=== PATIENT | male | born 1980 | race Caucasian/White ===

== ENCOUNTER 2016-07-22 16:52 | Emergency (ER) | payer SELFPAY ==
[~2016-07-22] VITALS: Ht 172.7 cm; Wt 65.8 kg
[2016-07-22 17:32] VITALS: BP 128/80
== END 2016-07-22 17:55 | disposition home or self-care (01) ==
LOC: ER 16:55
DX: R19.7 Diarrhea, unspecified (principal); F41.9 Anxiety disorder, unspecified
CPT/HCPCS: 99281; A4606; Z7610; Z7502

== ENCOUNTER 2016-08-08 00:54 | Emergency (ER) | payer SELFPAY ==
[~2016-08-08] VITALS: Ht 172.7 cm; Wt 66.7 kg
[2016-08-08 01:34] VITALS: BP 159/93
[2016-08-08] MEDS ORDERED: LORAZEPAM 1 MG TABLET ONE (01:53)
[2016-08-08] MEDS ORDERED: IBUPROFEN 400 MG TABLET ONE (01:53)
[2016-08-08] MEDS ORDERED: LORAZEPAM 1 MG TABLET PO ONE (02:00)
[2016-08-08] MEDS ORDERED: IBUPROFEN 400 MG TABLET PO ONE (02:00)
== END 2016-08-08 02:02 | disposition home or self-care (01) ==
LOC: ER 00:56
DX: F41.9 Anxiety disorder, unspecified (principal); M54.12 Radiculopathy, cervical region; M62.838 Other muscle spasm
CPT/HCPCS: 99284; A4606; Z7610

== ENCOUNTER 2016-12-26 22:53 | Emergency (ER) | payer SELFPAY ==
--- NOTE | 2016-12-26 23:36 | NUR ---
called pt in wr, no response
--- NOTE | 2016-12-26 23:52 | NUR ---
called pt in wr, no response
--- NOTE | 2016-12-27 00:08 | NUR ---
called pt in wr, no response
== END 2016-12-27 00:09 | disposition left against medical advice (07) ==
LOC: ER 22:57
DX: Z53.21 Procedure and treatment not carried out due to patient leaving prior to being seen by health care provider (principal)

== ENCOUNTER 2017-02-24 01:15 | Emergency (ER) | payer SELFPAY ==
--- NOTE | 2017-02-24 01:30 | NUR ---
STOPPED IN THE MIDDLE OF TRIAGE AND LEFT
== END 2017-02-24 01:39 | disposition left against medical advice (07) ==
LOC: ER 01:15
DX: Z53.21 Procedure and treatment not carried out due to patient leaving prior to being seen by health care provider (principal)

== ENCOUNTER 2017-10-18 21:54 | Emergency (ER) | payer SELFPAY ==
[~2017-10-18] VITALS: Ht 172.7 cm; Wt 65.8 kg
[2017-10-18 22:02] VITALS: BP 128/77
--- NOTE | 2017-10-18 22:35 | NUR ---
Patient eloped from facility. ER MD notified.
== END 2017-10-18 23:00 | disposition left against medical advice (07) ==
LOC: ER 21:54
DX: F41.9 Anxiety disorder, unspecified (principal); F17.200 Nicotine dependence, unspecified, uncomplicated
CPT/HCPCS: A4606; Z7610

== ENCOUNTER 2018-12-27 01:52 | Emergency (ER) | payer SELFPAY ==
[~2018-12-27] VITALS: Ht 172.7 cm; Wt 63.5 kg
--- NOTE | 2018-12-27 02:11 | NUR ---
s/e bt Dr. sanon at bedside
[2018-12-27 02:57] LABS: CALCIUM, SERUM 9.6 mg/dL (8.5-10.1); CREATININE 1.6 mg/dL (0.6-1.3); POTASSIUM 3.7 mmol/L (3.5-5.1)
[2018-12-27 03:10] LABS: BASOPHILS % (AUTO) 0.1 % (0.0-2.0); EOSINOPHILS % (AUTO) 0.1 % (0.0-6.0); HEMATOCRIT 43 % (39-51); HEMOGLOBIN 15.1 g/dL (13.5-17.5); LYMPHOCYTES # (AUTO) 1.5 /CMM (0.8-4.8); MEAN CORPUSCULAR HGB CONC 35 g/dl (31.0-36.0); MEAN CORPUSCULAR VOLUME 91 fL (80-96); MONOCYTES # (AUTO) 0.9 /CMM (0.1-1.30); MONOCYTES % (AUTO) 7.4 % (2.0-12.0); NEUTROPHILS # (AUTO) 10.1 /CMM (1.8-8.9); NEUTROPHILS % (AUTO) 80.4 % (43.0-81.0); PLATELET COUNT (AUTO) 307 /CMM (150-450); RED BLOOD CELL COUNT(AUTO) 4.72 MIL/uL (4.5-6.0); WHITE BLOOD COUNT (AUTO) 12.6 K/uL (4.3-11.0)
[2018-12-27 03:59] VITALS: BP 128/79
--- NOTE | 2018-12-27 03:59 | NUR ---
Patient discharged to home in stable condition. Written and verbal after care instructions given. Patient verbalizes understanding of instruction. Pt ambulatory with a steady gait
== END 2018-12-27 04:00 | disposition home or self-care (01) ==
LOC: ER 01:58
DX: R53.1 Weakness (principal); E86.0 Dehydration; F41.9 Anxiety disorder, unspecified; F17.200 Nicotine dependence, unspecified, uncomplicated; Z60.2 Problems related to living alone
CPT/HCPCS: 36415; 80048-TC; 85025-TC

== ENCOUNTER 2019-07-17 12:54 | Emergency (ER) | payer MEDICAID ==
[~2019-07-17] VITALS: Ht 172.7 cm; Wt 68.0 kg
--- NOTE | 2019-07-17 13:01 | NUR ---
BIB SELF C/O DIZZINESS/WEAKNESS STARTED 1 HOUR AGO. TO ER BED 13, HOOKED TO MONITOR, CHANGED TO HOSP GOWN, WARM BLANKET PROVIDED. AWAITING MD GUPTA. HITESH AOx4, BREATHING EVEN AND UNLABORED NAD NOTED
--- NOTE | 2019-07-17 13:08 | NUR ---
CK GANDHI AT BEDSIDE
[2019-07-17] MEDS ORDERED: IV NS 0.9% 1,000 ML BAG IV ONE (13:30)
[2019-07-17 13:33] LABS: BASOPHILS % (AUTO) 0.3 % (0.0-2.0); EOSINOPHILS % (AUTO) 0.3 % (0.0-6.0); HEMATOCRIT 44 % (39-51); HEMOGLOBIN 15.3 g/dL (13.5-17.5); LYMPHOCYTES # (AUTO) 1.2 /CMM (0.8-4.8); LYMPHOCYTES % (AUTO) 11.8 % (20.0-44.0); MEAN CORPUSCULAR HGB CONC 35 g/dl (31.0-36.0); MEAN CORPUSCULAR VOLUME 92 fL (80-96); MONOCYTES # (AUTO) 0.6 /CMM (0.1-1.30); MONOCYTES % (AUTO) 5.9 % (2.0-12.0); NEUTROPHILS # (AUTO) 8.5 /CMM (1.8-8.9); NEUTROPHILS % (AUTO) 81.7 % (43.0-81.0); PLATELET COUNT (AUTO) 285 /CMM (150-450); RED BLOOD CELL COUNT(AUTO) 4.74 MIL/uL (4.5-6.0); WHITE BLOOD COUNT (AUTO) 10.4 K/uL (4.3-11.0)
[2019-07-17 13:38] LABS: CALCIUM, SERUM 9.6 mg/dL (8.5-10.1); CREATININE 1.4 mg/dL (0.6-1.3); POTASSIUM 3.9 mmol/L (3.5-5.1)
--- NOTE | 2019-07-17 13:49 | NUR ---
WHEELED OUT VIA WHEELCHAIR FOR CT SCAN
--- NOTE | 2019-07-17 15:41 | NUR ---
IV removed. Catheter intact and site benign. Pressure and 4x4 applied to site. No bleeding noted.Patient discharged to home in stable condition. Written and verbal after care instructions given. Patient verbalizes understanding of instruction.
[2019-07-17 15:45] VITALS: BP 114/72
== END 2019-07-17 15:45 | disposition home or self-care (01) ==
LOC: ER 13:00
DX: R42 Dizziness and giddiness (principal); R51 Headache; R55 Syncope and collapse; F10.10 Alcohol abuse, uncomplicated; F17.200 Nicotine dependence, unspecified, uncomplicated; Y90.9 Presence of alcohol in blood, level not specified; Z60.2 Problems related to living alone
CPT/HCPCS: 36415; 70450; 80048; 85025; 96360; 99284; J7030

== ENCOUNTER 2019-08-15 00:30 | Emergency (ER) | payer SELFPAY ==
[~2019-08-15] VITALS: Ht 172.7 cm; Wt 68.0 kg
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
[2019-08-15 01:11] LABS: CALCIUM, SERUM 9.2 mg/dL (8.5-10.1); CREATININE 1.4 mg/dL (0.6-1.3); POTASSIUM 3.6 mmol/L (3.5-5.1)
[2019-08-15] MEDS ORDERED: VALPROATE 500 MG in IV NS 0.9% 100 ML IV STA (01:24)
[2019-08-15] MEDS ORDERED: Magnesium 1GM/D5W 100ML PREMIX 100 ML IV SCH (01:30)
[2019-08-15] MEDS ORDERED: DEXAMETHASONE SOD PHOSPHATE 4 MG/ML VIAL IV ONE (01:30)
[2019-08-15] MEDS ORDERED: DEXAMETHASONE SOD PHOSPHATE 10 MG/ML VIAL ONE (01:32)
[2019-08-15] MEDS ORDERED: Magnesium 1GM/D5W 100ML PREMIX 100 ML IV ONE (01:32)
--- NOTE | 2019-08-15 02:48 | NUR ---
IV removed. Catheter intact and site benign. Pressure and 4x4 applied to site. No bleeding noted. Patient discharged to home in stable condition. Written and verbal after care instructions given. Patient verbalizes understanding of instruction.
[2019-08-15 02:49] VITALS: BP 122/73
[2019-08-15] MEDS ORDERED: VALPROATE 500 MG in IV NS 0.9% 100 ML IV SCH (05:00)
== END 2019-08-15 02:49 | disposition home or self-care (01) ==
LOC: ER 00:31
DX: S06.0X0A Concussion without loss of consciousness, initial encounter (principal); F41.9 Anxiety disorder, unspecified; F17.200 Nicotine dependence, unspecified, uncomplicated; Z60.2 Problems related to living alone; V49.69XA Unspecified car occupant injured in collision with other motor vehicles in traffic accident, initial encounter; Y93.89 Activity, other specified; Y92.413 State road as the place of occurrence of the external cause; Y99.8 Other external cause status
CPT/HCPCS: 36415; 80048; 96365; 96375; 99284; J1100; J3475; J3490; J7030

== ENCOUNTER 2019-08-26 21:13 | Emergency (ER) | payer MEDICAID ==
[~2019-08-26] VITALS: Ht 172.7 cm; Wt 78.9 kg
--- NOTE | 2019-08-26 21:26 | NUR ---
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 PT AAOX4, RR EVEN AND UNLABORED ONR A W/NAD NOTED. PT CONNECTED TO THE [employer] DEMONSTRATOR AND POX
[2019-08-26] MEDS: IV NS 0.9% 500 ML BAG IV ONE (21:56)
--- NOTE | 2019-08-26 22:00 | NUR ---
XRAY AT BEDSIDE
[2019-08-26 22:10] LABS: BASOPHILS # (AUTO) 0.1 /CMM (0.0-0.2); BASOPHILS % (AUTO) 0.5 % (0.0-2.0); EOSINOPHILS % (AUTO) 0.9 % (0.0-6.0); HEMATOCRIT 40 % (39-51); HEMOGLOBIN 14.1 g/dL (13.5-17.5); LYMPHOCYTES # (AUTO) 2.3 /CMM (0.8-4.8); LYMPHOCYTES % (AUTO) 22.2 % (20.0-44.0); MEAN CORPUSCULAR HGB CONC 35 g/dl (31.0-36.0); MEAN CORPUSCULAR VOLUME 90 fL (80-96); MONOCYTES # (AUTO) 0.8 /CMM (0.1-1.30); MONOCYTES % (AUTO) 7.8 % (2.0-12.0); NEUTROPHILS # (AUTO) 7.1 /CMM (1.8-8.9); NEUTROPHILS % (AUTO) 68.6 % (43.0-81.0); PLATELET COUNT (AUTO) 313 /CMM (150-450); RED BLOOD CELL COUNT(AUTO) 4.43 MIL/uL (4.5-6.0); WHITE BLOOD COUNT (AUTO) 10.3 K/uL (4.3-11.0)
[2019-08-26 22:23] LABS: CALCIUM, SERUM 9.2 mg/dL (8.5-10.1); CARBON DIOXIDE 26 mmol/L (21-32); CHLORIDE 105 mmol/L (98-107); CREATININE 1.4 mg/dL (0.6-1.3); GLUCOSE 129 mg/dL (74-106); POTASSIUM 3.9 mmol/L (3.5-5.1); SODIUM SERUM 139 mmol/L (136-145); UREA NITROGEN, BLOOD 17 mg/dL (7-18)
[2019-08-26 22:34] LABS: B-TYPE NATRIURETIC PEPTIDE 32 PG/ML (0-125)
--- NOTE | 2019-08-26 23:04 | NUR ---
Patient discharged to home in stable condition. Written and verbal after care instructions given. Patient verbalizes understanding of instruction.IV removed. Catheter intact and site benign. Pressure and 4x4 applied to site. No bleeding noted.
[2019-08-26 23:05] VITALS: BP 115/70
== END 2019-08-26 23:05 | disposition home or self-care (01) ==
LOC: ER 21:16
DX: R00.2 Palpitations (principal); F41.9 Anxiety disorder, unspecified; Z60.2 Problems related to living alone; Z87.891 Personal history of nicotine dependence
CPT/HCPCS: 36415; 71045; 80048; 83880; 84484; 85025; 85730; 93005; 99285; J7040

== ENCOUNTER 2019-09-23 14:03 | Emergency (ER) | payer MEDICAID ==
[~2019-09-23] VITALS: Ht 172.7 cm; Wt 74.8 kg
--- NOTE | 2019-09-23 14:27 | NUR ---
tyrell garibay at bedside for eval.
--- NOTE | 2019-09-23 14:28 | NUR ---
iv line started blood drawn and sent to lab.
[2019-09-23 14:39] LABS: BASOPHILS % (AUTO) 0.1 % (0.0-2.0); EOSINOPHILS % (AUTO) 0.7 % (0.0-6.0); HEMATOCRIT 41 % (39-51); HEMOGLOBIN 14.5 g/dL (13.5-17.5); LYMPHOCYTES # (AUTO) 1.5 /CMM (0.8-4.8); LYMPHOCYTES % (AUTO) 18.5 % (20.0-44.0); MEAN CORPUSCULAR HGB CONC 35 g/dl (31.0-36.0); MEAN CORPUSCULAR VOLUME 90 fL (80-96); MONOCYTES # (AUTO) 0.7 /CMM (0.1-1.30); MONOCYTES % (AUTO) 9.4 % (2.0-12.0); NEUTROPHILS # (AUTO) 5.6 /CMM (1.8-8.9); NEUTROPHILS % (AUTO) 71.3 % (43.0-81.0); PLATELET COUNT (AUTO) 266 /CMM (150-450); RED BLOOD CELL COUNT(AUTO) 4.59 MIL/uL (4.5-6.0); WHITE BLOOD COUNT (AUTO) 7.9 K/uL (4.3-11.0)
[2019-09-23 14:48] LABS: CALCIUM, SERUM 9.3 mg/dL (8.5-10.1); CARBON DIOXIDE 29 mmol/L (21-32); CHLORIDE 105 mmol/L (98-107); CREATININE 1.5 mg/dL (0.6-1.3); GLUCOSE 108 mg/dL (74-106); POTASSIUM 4.1 mmol/L (3.5-5.1); SODIUM SERUM 141 mmol/L (136-145); UREA NITROGEN, BLOOD 17 mg/dL (7-18)
--- NOTE | 2019-09-23 14:51 | NUR ---
radiology at bedside for chest xray.
[2019-09-23 14:58] LABS: ALANINE AMINOTRANSFERASE 23 U/L (12-78); ALBUMIN 4.1 g/dL (3.4-5.0); ALKALINE PHOSPHATASE 62 U/L (46-116); ASPARTATE AMINOTRANSFERASE 18 U/L (15-37); BILIRUBIN,DIRECT 0.1 mg/dL (0.0-0.2); BILIRUBIN,TOTAL 0.9 mg/dL (0.2-1.0); TOTAL PROTEIN, SERUM 7.7 g/dL (6.4-8.2)
[2019-09-23 15:39] VITALS: BP 122/77
== END 2019-09-23 15:40 | disposition home or self-care (01) ==
LOC: ER 14:12
DX: R00.2 Palpitations (principal); F17.200 Nicotine dependence, unspecified, uncomplicated; Z60.2 Problems related to living alone
CPT/HCPCS: 36415; 71045-TC; 80048-TC; 80076-TC; 83690-TC; 84484-TC; 85025-TC; 85378-TC

== ENCOUNTER 2019-10-06 10:41 | Emergency (ER) | payer MEDICAID ==
[~2019-10-06] VITALS: Ht 167.6 cm; Wt 64.0 kg
[2019-10-06 11:13] VITALS: BP 127/82
== END 2019-10-06 11:15 | disposition home or self-care (01) ==
LOC: ER 10:48
DX: I10 Essential (primary) hypertension (principal); Z60.2 Problems related to living alone

== ENCOUNTER 2020-05-24 16:54 | Emergency (ER) | payer MEDICAID, OTHER ==
[~2020-05-24] VITALS: Ht 172.7 cm; Wt 70.3 kg
[2020-05-24 17:28] VITALS: BP 127/79
--- NOTE | 2020-05-24 17:38 | NUR ---
Patient eloped from facility. ER MD notified. Called Patient via phone, he stated he left because he felt better and doesn't want to be seen anymore.
== END 2020-05-24 17:49 | disposition left against medical advice (07) ==
LOC: ER 17:05
DX: R00.2 Palpitations (principal); Z53.21 Procedure and treatment not carried out due to patient leaving prior to being seen by health care provider

== ENCOUNTER 2020-06-19 16:04 | Emergency (ER) | payer OTHER ==
[~2020-06-19] VITALS: Ht 165.1 cm; Wt 68.0 kg
[2020-06-19 16:09] VITALS: BP 124/81
--- NOTE | 2020-06-19 16:55 | NUR ---
Patient discharged to home in stable condition. Written and verbal after care instructions given. Patient verbalizes understanding of instruction.
== END 2020-06-19 16:56 | disposition home or self-care (01) ==
LOC: ER 16:08
DX: R07.2 Precordial pain (principal); Z20.828 Contact with and (suspected) exposure to other viral communicable diseases; F41.9 Anxiety disorder, unspecified; Z87.448 Personal history of other diseases of urinary system; Q24.5 Malformation of coronary vessels
CPT/HCPCS: 87426; 87804; 99283; C9803

== ENCOUNTER 2021-01-11 17:48 | Emergency (ER) | payer OTHER ==
[~2021-01-11] VITALS: Ht 167.6 cm; Wt 68.0 kg
[2021-01-11 18:26] LABS: BASOPHILS % (AUTO) 0.4 % (0.0-2.0); EOSINOPHILS % (AUTO) 1.6 % (0.0-6.0); HEMATOCRIT 44 % (39-51); HEMOGLOBIN 15.2 g/dL (13.5-17.5); LYMPHOCYTES % (AUTO) 26.9 % (20.0-44.0); MEAN CORPUSCULAR HGB CONC 35 g/dl (31.0-36.0); MEAN CORPUSCULAR VOLUME 95 fL (80-96); MONOCYTES # (AUTO) 0.8 K/uL (0.1-1.30); MONOCYTES % (AUTO) 10.6 % (2.0-12.0); NEUTROPHILS # (AUTO) 4.4 K/uL (1.8-8.9); NEUTROPHILS % (AUTO) 60.5 % (43.0-81.0); PLATELET COUNT (AUTO) 299 K/uL (150-450); RED BLOOD CELL COUNT(AUTO) 4.59 MIL/uL (4.5-6.0); WHITE BLOOD COUNT (AUTO) 7.3 K/uL (4.3-11.0)
[2021-01-11 18:33] LABS: CALCIUM, SERUM 8.9 mg/dL (8.5-10.1); CARBON DIOXIDE 24 mmol/L (21-32); CHLORIDE 105 mmol/L (98-107); CREATININE 1.3 mg/dL (0.6-1.3); GLUCOSE 103 mg/dL (74-106); POTASSIUM 3.8 mmol/L (3.5-5.1); SODIUM SERUM 143 mmol/L (136-145); UREA NITROGEN, BLOOD 16 mg/dL (7-18)
--- NOTE | 2021-01-11 19:05 | NUR ---
PT BIBSELF C/O LEFT LOWER RIB PAIN THAT RADIATES TO MIDSTERNAL CHEST. PT BREATHING EVENLY AND UNLABORED. PT ATTACHED TO [employer] MONITOR AND POX. PT SKIN WARM, DRY, AND INTACT. CALL LIGHT WITHIN REACH
--- NOTE | 2021-01-11 19:35 | NUR ---
Patient discharged to home in stable condition. Written and verbal after care instructions given. Patient verbalizes understanding of instruction. pT ambulatory with a steady gait
[2021-01-11 19:41] VITALS: BP 116/66
== END 2021-01-11 19:35 | disposition home or self-care (01) ==
LOC: ER 17:54
DX: R07.89 Other chest pain (principal); F41.9 Anxiety disorder, unspecified; F17.200 Nicotine dependence, unspecified, uncomplicated; Z60.2 Problems related to living alone
CPT/HCPCS: 36415; 71045-TC; 80048-TC; 84484-TC; 85025-TC